=== PATIENT | female | born 1990 | race Asian ===

== ENCOUNTER 2018-06-30 10:21 | Day surgery (SDC) | payer OTHER ==
[2018-06-28 16:27] LABS: Absolute Lymphocytes (CBC) 1.3 K/uL (0.7-4.9); Absolute Monocytes 0.5 K/uL (0.1-1.3); Absolute Neutrophil 3.6 K/uL (1.8-8.0); Basophils % 0.5 % (0-1.3); Hematocrit 39.4 % (36.0-45.0); Lymphocytes % 23.1 % (15.3-44.8); MPV 8.2 fL (7.6-11.3); RBC Red Blood Cell Count 4.14 M/uL (3.86-4.86)
[2018-06-28 16:34] LABS: BUN Blood Urea Nitrogen 10 mg/dL (7-18); Bicarbonate 27 mmol/L (21-32); Glucose Level 114 mg/dL (74-106); Potassium 3.6 mmol/L (3.5-5.1); Sodium Level 141 mmol/L (136-145)
[2018-06-30] MEDS ORDERED: Ringers Lactate 1,000 ML IV ONE (10:56)
[2018-06-30] MEDS ORDERED: CEFAZOLIN 1GM (PREMIX IV) 1 GM/50 ML BAG ONE (10:56)
[2018-06-30] MEDS ORDERED: FENTANYL CITR 100 MCG/2 ML ONE (11:02)
[2018-06-30] MEDS ORDERED: PROPOFOL 200 MG/20 ML VIAL IV ONE (11:02)
[2018-06-30] MEDS ORDERED: LIDOCAINE 2% MPF 5 ML VIAL ONE (11:02)
[2018-06-30] MEDS ORDERED: KETOROLAC 30 MG/ML INJ ONE (11:02)
[2018-06-30] MEDS ORDERED: MIDAZOLAM HCL 2 MG/2 ML INJ ONE (11:02)
[2018-06-30] MEDS ORDERED: DEXAMETHASONE 10 MG/ML VIAL ONE (11:02)
[2018-06-30] MEDS: MEPERIDINE HCL 25 MG/0.5 ML ONE ×2 (13:10→13:15)
[2018-06-30] MEDS: HYDROMORPHONE HCL 1 MG/ML INJ ONE ×4 (13:30→13:50)
[2018-06-30] MEDS ORDERED: ONDANSETRON 4 MG/2 ML VIAL ONE ×2 (14:07→16:13)
[2018-06-30] MEDS ORDERED: METOCLOPRAMIDE 10 MG/2mL INJ ONE (14:09)
--- NOTE | 2018-06-30 14:21 | RAD REPORT ---
EXAM DESCRIPTION: RAD - Ankle Left 2 View - 06/30/2018 2:14 pm CLINICAL HISTORY: LEFT ANKLE ORIF COMPARISON: Ankle Left 3 View dated 06/26/2018 FINDINGS: Fluoroscopic imaging is submitted from ORIF procedure of the left ankle. Details of the pr ocedure not available. 3 fluoroscopic spot images are submitted. Total fluoro time 0.1 minutes.
[2018-06-30] MEDS ORDERED: SCOPOLAMINE HYDROBROMIDE PATCH TD ONE (16:39)
[2018-06-30] MEDS ORDERED: CODEINE 30MG/APAP 300MG TAB ONE (18:14)
--- NOTE | 2018-06-30 23:53 | OP ---
Date of Procedure: 06/30/2018 Surgeon: Arvind Persaud MD Preoperative Diagnosis: Left displaced lateral malleolus fracture. Postoperative Diagnosis: Left displaced lateral malleolus fracture. Procedure: Left lateral malleolus open reduction and internal fixation. Estimated Blood Loss: Less than 10 cc. Complications: There were no complications. Specimen: No pathology specimens sent. Indication For Operation: The patient is a 28-year-old female who is normally in very good health, w ho unfortunately injured her left ankle while on vacation. 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 She had x-rays taken, which demonstrated a slightly displaced lateral malle olus fracture. However, there did appear to be some slight widening of the medial clear space. All risks, benefits, and alternatives to operative intervention had been discussed with the patient. She states she understands things presented and wished to proceed. Description Of Procedure: The patient was taken to the operating room and placed in the supine posit ion. General anesthesia was obtained by staff. Following this, a well-padded tourniquet was placed on superior left thigh. Left lower extremity was then prepped and draped in usual sterile fashion fo r the procedure. The leg was then elevated, but not exsanguinated. Tourniquet was raised. A standa rd lateral incision was taken down carefully through skin and soft tissues. Meticulous hemostasis wa s being maintained using Bovie electrocautery. Deeper dissection was performed using pickups and sci ssors to avoid injury to the superficial peroneal nerve. The fracture site was encountered and then cleared. An attempt was made to place the lag screw, but this appeared to exit posteriorly in the re gion of the peroneal tendons if placed appropriately. Therefore, the decision made to simply plate i t as it did appear that the implant was holding well, and the plate would be able to do a good job. This was followed by application of a 6-hole 1/3 tubular plate without locking screws in standard fas hion. Following this, the wound was irrigated. Skin was closed using interrupted Vicryl sutures, fo llowed by nylon sutures. The patient was then placed in a well-padded sterile dressing as well as a posterior splint and a U. She was awakened and taken to recovery room in good condition. There were no complications. SE/MODL Voice ID: [id number] Report ID: [id number]
== END 2018-06-30 19:00 | disposition home or self-care (01) ==
LOC: OR 10:21
PROVIDERS: ATTEND Orthopaedic Surgery
PROC: 0QSK04Z Reposition Left Fibula with Internal Fixation Device, Open Approach (ICD-10-PCS; principal; 2018-06-30 11:30)
DX: S82.62XA Displaced fracture of lateral malleolus of left fibula, initial encounter for closed fracture (principal)
CPT/HCPCS: 36415; 80048; 81025; 85025; J0690; J1100; J1170; J2175; J2250; J2405; J2704; J2765; J3010